=== PATIENT | male | born 1990 | race Caucasian/White ===

== ENCOUNTER 2017-06-14 18:34 | Emergency (ER) | payer OTHER ==
[~2017-06-14] VITALS: Ht 177.8 cm; Wt 95.3 kg
--- NOTE | 2017-06-14 19:15 | ED PSYCHIATRIC COMPLAINT ---
History of Present Illness General Chief Complaint: ETOH/Drug Related Complaint Stated Complaint: ETOH Source: patient Exam Limitations: intoxication Vital Signs & Intake/Output Vital Signs & Intake/Output Vital Signs Date Time Temp Pulse Resp B/P B/P Pulse O2 O2 Flow FiO2 Mean Ox Delivery Rate 06/15 0615 98.0 82 18 111/69 96 Room Air 06/15 0038 98.2 80 18 103/55 93 Room Air 06/14 1842 96.7 85 18 139/85 98 Room Air ED Intake and Output 06/15 0000 06/14 1200 Intake Total 0 Output Total Balance 0 Intake, Oral 0 Patient 210 lb Weight Weight Reported by Patient Measurement Method Allergies Coded Allergies: NO KNOWN ALLERGIES (09/06/14) Triage Note: 27 YO MALE BIBA AFTER BEING FOUND WANDERING ON THE STREET BY PD. PER PD, PT WAS STATING HE WAS DEPRESSED AND "HE WAS GOING TO ". ON ARRIVAL TO ED, PT STRONG SMELL OF ETOH. STATES HE DRANK APPROX 1/2 BOTTLE OF VODKA TODAY. ADMITES TO SMOKING MARIJUANA. DENIES SI/HI. PT CALM AND COOPERATIVE. PT ON PEER. PT STATES HE WAS JUST OUT WALKING IN THE SNOW, STATING "IM JUST DRUNK". SECURITY AT BEDSIDE FOR WANDING. Triage Nurses Notes Reviewed? yes HPI: Patient presents for evaluation of alcohol intoxication. Patient states that he was picked up by the police while he was walking down the street. He admits to drinking a half a gallon of vodka today. He denies daily alcohol use, stating that he only drinks when he gets paid. He denies SI or HI. He is not interested in alcohol detox. He lives with his mother currently. (Bhavana MONIQUE,Tor Saleem) Reconcile Medications No Known Home Medications (Marcelino MONIQUE,August Ellsworth) Past History Travel History Traveled to [place] past 21 day No Medical History Any Pertinent Medical History? see below for history Neurological: NONE EENT: NONE Cardiovascular: NONE Respiratory: asthma Gastrointestinal: NONE Hepatic: NONE Renal: NONE Musculoskeletal: NONE Psychiatric: NONE Endocrine: NONE Blood Disorders: NONE Tetanus Vaccine: 09/06/14 Surgical History Surgical History: non-contributory Psychosocial History What is your primary language Thai Tobacco Use: Quit >30 days ago ETOH Use: occasional use Illicit Drug Use: marijuana Family History Hx Contributory? No (Bhavana MONIQUE,Tor Saleem) Review of Systems Review of Systems Constitutional: Reports: no symptoms. EENTM: Reports: no symptoms. Respiratory: Reports: no symptoms. Cardiovascular: Reports: no symptoms. GI: Reports: no symptoms. Genitourinary: Reports: no symptoms. Musculoskeletal: Reports: no symptoms. Skin: Reports: no symptoms. Neurological/Psychological: Reports: no symptoms. Hematologic/Endocrine: Reports: no symptoms. Immunologic/Allergic: Reports: no symptoms. All Other Systems: Reviewed and Negative (Bhavana MONIQUE,Tor Saleem) Physical Exam Physical Exam General Appearance: SEE BELOW Neurological/Psychiatric: SEE BELOW Comments: Gen.: Well-nourished, well-developed, no acute respiratory distress. Mild EtOH- like odor. Head: Normocephalic, atraumatic. Eyes: Normal inspection bilaterally Ears: Normal inspection bilaterally Nose: Normal inspection Throat/mouth : Moist mucosa Neck: Supple, full range of motion, no goiter Heart: Regular rate and rhythm, no murmurs rubs or gallops Lungs: Clear to auscultation bilaterally with normal air entry Chest: Nontender Back: Normal range of motion Abdomen: Soft, nontender, nondistended, normal bowel sounds Extremities: Normal range of motion grossly, equal radial pulses, no cyanosis clubbing or edema Neurologic: Cranial nerves grossly intact, speech is clear, gait is stable Skin: warm and dry Psychiatric: Calm, cooperative, no apparent delusions or hallucinations, normal affect SAD PERSONS Done? patient not suicidal (Bhavana MONIQUE,Tor Saleem) Progress Differential Diagnosis: ALCOHOL INTOXICATION, DRUG INTOXICATION Plan of Care: Drug and alcohol cessation Comments: 06/14/2017 7:14:27 PM patient has spoken with his mother who is willing to accept him back home. He is now calling for a ride home via family members. 06/14/2017 9:15:31 PM despite phone calls to his mother, his father and his grandmother, [place] is been no been able to secure a ride home. He is currently sleeping. 06/15/2017 12:08:37 AM patient signed out to Dr. Benson at [employer]. (Bhavana MONIQUE,Tor Saleem) Departure Departure Disposition: STILL A PATIENT Condition: Stable Clinical Impression Primary Impression: Alcohol intoxication Qualifiers: Complication of substance-induced condition: uncomplicated Qualified Code: F10.920 - Alcohol use, unspecified with intoxication, uncomplicated Referrals: Kev MONIQUE,Waldo Mcgarry (PCP/Family) Departure Forms: Customer Survey General Discharge Information (Bhavana MONIQUE,Tor Saleem) Departure Prescriptions: Current Visit Scripts No Known Home Medications Comments 06/15/17, 6:31am...pt awake and alert, declines detox, and would like to go home. pt safe for discharge (Marcelino MONIQUE,August Ellsworth)
[2017-06-15 06:15] VITALS: BP 111/69
== END 2017-06-15 06:26 ==
LOC: ERH 18:34
DX: F10.129 Alcohol abuse with intoxication, unspecified (principal)